=== PATIENT | female | born 1985 | race Caucasian/White ===

== ENCOUNTER 2018-11-29 18:45 | Emergency (ER) | payer OTHER ==
--- NOTE | 2018-11-29 20:40 | EDPHY ---
H & P Smoking Status: Never smoked Time Seen by Provider: 11/29/18 19:23 HPI/ROS: CHIEF COMPLAINT: "I think I have hemorrhoids" HISTORY OF PRESENT ILLNESS: 33-year-old female complaining of 1 week of pain with defecation, blood on toilet paper and a small amount of blood in toilet water. Concerned about hemorrhoids. She notes a history of hemorrhoids. She denies abdominal pain. Denies rectal pain. Denies fever chills. Denies nausea or vomiting. Denies rectal foreign body insertion or trauma. PHYSICAL EXAM (Prior to examination, patient consented to physical exam, hands were washed and my usual and customary physical exam procedures followed) 1) GENERAL: Well-developed, well-nourished, alert and oriented. Appears to be in no acute distress. 2) HEAD: Normocephalic 3) HEENT: sclera anicteric 4) LUNGS: Breathing comfortably. [5) rectal: Nonthrombosed external hemorrhoid noted. A friable bleeding internal hemorrhoid noted on anoscopy, see anoscope note. (Kelsey Rivas) Constitutional: Initial Vital Signs Temperature (C) 36.8 C 11/29/18 18:47 Heart Rate 83 11/29/18 18:47 Respiratory Rate 18 11/29/18 18:47 Blood Pressure 128/82 H 11/29/18 18:47 O2 Sat (%) 98 11/29/18 18:47 O2 Delivery Mode Room Air Allergies/Adverse Reactions: No Known Allergies Allergy (Unverified 11/29/18 18:47) Home Medications: Medication Instructions Recorded Hydrocortisone/Pramoxine 10 gm RC TID #1 foam 11/29/18 [Proctofoam-Hc 1%-1% Foam] Zinc Acetate 11/29/18 MDM/Departure - MDM Procedures: Procedure: Anoscopy Indication: Pain with defecation Indications risks benefits discussed with patient. With female marine fisheries technician Carina at bedside and after patient verbally consented to procedure anoscope speculum was introduced and I was able to visualize a friable, bleeding internal hemorrhoid. No evidence of abscess. Patient tolerated procedure well. (Kelsey Rivas) ED Course/Re-evaluation: Patient has a non thrombosed external hemorrhoid and bleeding internal hemorrhoid with no evidence of thrombosis, no evidence of fissure, no evidence of perianal abscess. Doubt perianal abscess. Doubt perirectal abscess. We discussed increasing fluid and fiber intake. I will prescribe for Proctofoam. I recommended follow-up with General surgery as she may necessitate further intervention. She has been given this referral information. Care of patient under supervision of secondary supervising physician Dr Josias Pearson. (Kelsey Rivas) - Depart Disposition: Home, Routine, Self-Care Clinical Impression: Hemorrhoids Qualifiers: Hemorrhoid type: unspecified Qualified Code(s): K64.9 - Unspecified hemorrhoids Condition: Good Instructions: Hemorrhoids (ED) Additional Instructions: Return to emergency department if you develop new or worsening pain, if you develop increase in bleeding, if you develop dizziness or any other symptoms that concern you. Prescriptions: Hydrocortisone/Pramoxine [Proctofoam-Hc 1%-1% Foam] 10 gm RC TID #1 foam Referrals: Dejuan Dudley MD [Medical Doctor] - As per Instructions
[2018-11-29 20:47] VITALS: BP 126/83
== END 2018-11-29 20:55 | disposition home or self-care (01) ==
PROC: 0DJD8ZZ Inspection of Lower Intestinal Tract, Via Natural or Artificial Opening Endoscopic (ICD-10-PCS; principal; 2018-11-29)
DX: K64.4 Residual hemorrhoidal skin tags (principal)